=== PATIENT | female | born 2000 | race Caucasian/White ===

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

== ENCOUNTER 2019-03-21 23:21 | Outpatient (CLI) | payer OTHER ==
[2019-03-22 00:41] LABS: APPEARANCE,URINE CLOUDY; BILIRUBIN,URINE NEGATIVE (NEGATIVE); GLUCOSE, URINE NEGATIVE (NEGATIVE); KETONES,URINE NEGATIVE (NEGATIVE); LEUKOCYTE ESTERASE,URINE MODERATE (NEGATIVE); NITRITE,URINE NEGATIVE (NEGATIVE); PROTEIN,URINE NEGATIVE (NEGATIVE); URINE SPECIFIC GRAVITY 1.013; UROBILINOGEN,URINE NEGATIVE mg/dL (<2.0)
[2019-03-22 00:43] LABS: COLOR,URINE YELLOW
[2019-03-22 00:53] LABS: URINE AMPHETAMINES SCREEN NEGATIVE; URINE BARBITURATES SCREEN NEGATIVE; URINE BENZODIAZEPINES SCREEN NEGATIVE; URINE COCAINE SCREEN NEGATIVE; URINE MARIJUANA (THC) SCREEN NEGATIVE; URINE METHADONE SCREEN NEGATIVE
[2019-03-22 00:58] LABS: URINE PHENCYCLIDINE SCREEN NEGATIVE
== END 2019-03-22 01:24 | disposition home or self-care (01) ==
LOC: LC 23:21
PROVIDERS: ATTEND Obstetrics & Gynecology Gynecology
PROC: 4A1HXCZ Monitoring of Products of Conception, Cardiac Rate, External Approach (ICD-10-PCS; principal; 2019-03-21)
DX: O23.42 Unspecified infection of urinary tract in pregnancy, second trimester (principal); Z3A.20 20 weeks gestation of pregnancy
CPT/HCPCS: 80307; 81001

== ENCOUNTER 2019-06-04 21:15 | Outpatient (CLI) | payer OTHER ==
[2019-06-04 21:56] LABS: APPEARANCE,URINE SLIGHTLY-CLOUDY; BILIRUBIN,URINE NEGATIVE (NEGATIVE); COLOR,URINE YELLOW; GLUCOSE, URINE NEGATIVE (NEGATIVE); KETONES,URINE NEGATIVE (NEGATIVE); LEUKOCYTE ESTERASE,URINE SMALL (NEGATIVE); NITRITE,URINE NEGATIVE (NEGATIVE); PROTEIN,URINE NEGATIVE (NEGATIVE); URINE SPECIFIC GRAVITY 1.016; UROBILINOGEN,URINE NEGATIVE mg/dL (<2.0)
[2019-06-04 22:08] LABS: URINE AMPHETAMINES SCREEN NEGATIVE; URINE BARBITURATES SCREEN NEGATIVE; URINE BENZODIAZEPINES SCREEN NEGATIVE; URINE COCAINE SCREEN NEGATIVE; URINE MARIJUANA (THC) SCREEN NEGATIVE; URINE METHADONE SCREEN NEGATIVE; URINE PHENCYCLIDINE SCREEN NEGATIVE
[2019-06-04] MEDS ORDERED: HYDROXYZINE PAMOATE 50 MG CAPSULE ONE (22:15)
[2019-06-04] MEDS ORDERED: HYDROXYZINE PAMOATE 50 MG CAPSULE PO ONE (22:45)
--- NOTE | 2019-06-04 23:29 | RADIOLOGY REPORT (SQ) ---
US PELVIS EXAM DATE: 06/04/2019 12:00 AM CDT HISTORY: Pelvic pain. Evaluate for cervical length. COMPARISON: None. TECHNIQUE: Grayscale, color Doppler, and spectral Doppler ultrasound images of the pelvis were obtained. FINDINGS: There is a single intrauterine gestation in vertex position. The placenta is posterior. LEX is 9.1 cm. The heart rate is 157 bpm. The cervix is closed and measures 3.5 cm in length. IMPRESSION: Closed cervix measuring 3.5 cm.
== END 2019-06-04 23:43 | disposition home or self-care (01) ==
LOC: LC 21:15
PROVIDERS: ATTEND Obstetrics & Gynecology
PROC: 4A1HXCZ Monitoring of Products of Conception, Cardiac Rate, External Approach (ICD-10-PCS; principal; 2019-06-04)
DX: O47.03 False labor before 37 completed weeks of gestation, third trimester (principal); Z3A.31 31 weeks gestation of pregnancy
CPT/HCPCS: 76815; 80307; 81001

== ENCOUNTER 2019-07-18 16:26 | Outpatient (CLI) | payer OTHER ==
[2019-07-18 16:54] LABS: APPEARANCE,URINE SLIGHTLY-CLOUDY; BILIRUBIN,URINE NEGATIVE (NEGATIVE); COLOR,URINE YELLOW; GLUCOSE, URINE NEGATIVE (NEGATIVE); KETONES,URINE NEGATIVE (NEGATIVE); LEUKOCYTE ESTERASE,URINE SMALL (NEGATIVE); NITRITE,URINE NEGATIVE (NEGATIVE); PROTEIN,URINE NEGATIVE (NEGATIVE); URINE SPECIFIC GRAVITY 1.013; UROBILINOGEN,URINE NEGATIVE mg/dL (<2.0)
[2019-07-18 17:10] LABS: URINE AMPHETAMINES SCREEN NEGATIVE; URINE BARBITURATES SCREEN NEGATIVE; URINE BENZODIAZEPINES SCREEN NEGATIVE; URINE COCAINE SCREEN NEGATIVE; URINE MARIJUANA (THC) SCREEN NEGATIVE; URINE METHADONE SCREEN NEGATIVE; URINE PHENCYCLIDINE SCREEN NEGATIVE
--- NOTE | 2019-07-18 17:11 | Non Stress Test Report ---
Non Stress Test Datetime Report Generated by CPN: 07/18/2019 17:10 DEMOGRAPHIC EGA NST: 37.3 INDICATION Indication for Study: Ordered by Provider VITAL SIGNS Temperature - NST: 98.0 RESP - NST: 16 MONITORING Monitor Explained: Monitor Explained; Test Explained; Patient Verbalized Understanding Time on Monitor: 07/18/2019 16:40 Time off Monitor: 07/18/2019 17:00 NST Duration: 20 NST INTERVENTIONS NST Interventions: Reposition Patient Physician Notified NST: A. Freitas CNM on unit reviewed fht BABY A: [id number] BABY A Movement : Present Contraction Frequency : none FHR Baseline : 145 Accelerations : 15X15 Decelerations : None Variability : Moderate 6-25bpm NST Review: Meets Criteria for Reactive NST NST Review and Verified By : Belinda Hedrick RN NST Results: Reactive NST REPORT Report Trigger: Send Report
== END 2019-07-18 17:11 | disposition home or self-care (01) ==
LOC: LC 16:26
PROVIDERS: ATTEND Obstetrics & Gynecology Gynecology
PROC: 4A1HXCZ Monitoring of Products of Conception, Cardiac Rate, External Approach (ICD-10-PCS; principal; 2019-07-18)
DX: Z34.93 Encounter for supervision of normal pregnancy, unspecified, third trimester (principal)
CPT/HCPCS: 59025; 80307; 81005; 84112

== ENCOUNTER 2019-07-28 22:56 | Outpatient (CLI) | payer OTHER ==
[2019-07-28 23:53] LABS: APPEARANCE,URINE CLOUDY; BILIRUBIN,URINE NEGATIVE (NEGATIVE); COLOR,URINE YELLOW; GLUCOSE, URINE NEGATIVE (NEGATIVE); KETONES,URINE NEGATIVE (NEGATIVE); LEUKOCYTE ESTERASE,URINE NEGATIVE (NEGATIVE); NITRITE,URINE NEGATIVE (NEGATIVE); PROTEIN,URINE NEGATIVE (NEGATIVE); URINE SPECIFIC GRAVITY 1.014; UROBILINOGEN,URINE NEGATIVE mg/dL (<2.0)
[2019-07-29 00:14] LABS: URINE AMPHETAMINES SCREEN NEGATIVE; URINE BARBITURATES SCREEN NEGATIVE; URINE BENZODIAZEPINES SCREEN NEGATIVE; URINE COCAINE SCREEN NEGATIVE; URINE MARIJUANA (THC) SCREEN NEGATIVE; URINE METHADONE SCREEN NEGATIVE; URINE PHENCYCLIDINE SCREEN NEGATIVE
[2019-07-29] MEDS ORDERED: HYDROXYZINE PAMOATE 50 MG CAPSULE PO ONE (00:47)
[2019-07-29] MEDS ORDERED: HYDROXYZINE PAMOATE 50 MG CAPSULE ONE (00:58)
== END 2019-07-29 01:13 | disposition home or self-care (01) ==
LOC: LC 22:56
PROVIDERS: ATTEND Obstetrics & Gynecology
PROC: 4A1HXCZ Monitoring of Products of Conception, Cardiac Rate, External Approach (ICD-10-PCS; principal; 2019-07-28)
DX: O47.1 False labor at or after 37 completed weeks of gestation (principal); Z3A.38 38 weeks gestation of pregnancy
CPT/HCPCS: 59025; 80307; 81005

== ENCOUNTER 2019-08-01 22:38 | Outpatient (CLI) | payer OTHER ==
--- NOTE | 2019-08-01 22:52 | Non Stress Test Report ---
Non Stress Test Datetime Report Generated by CPN: 08/01/2019 22:52 DEMOGRAPHIC EGA NST: 39.0 INDICATION Indication for Study: Ordered by Provider URINE RESULTS Urine Protein, NST: Negative Urine Ketones - NST: Negative Urine Glucose - NST: Negative Urine Blood - NST: Negative MONITORING Monitor Explained: Monitor Explained; Test Explained; Patient Verbalized Understanding Time on Monitor: 07/29/2019 00:00 Time off Monitor: 07/29/2019 00:30 NST Duration: 30 NST INTERVENTIONS NST Interventions: PO Hydration Physician Notified NST: Dr. Ayon BABY A: [id number] BABY A Movement : Present Contraction Frequency : Occasional FHR Baseline : 125 Accelerations : 15X15 Decelerations : None Variability : Moderate 6-25bpm NST Review: Meets Criteria for Reactive NST NST Review and Verified By : alhaji SIEGEL Results: Reactive NST REPORT Report Trigger: Send Report
[2019-08-01 23:43] LABS: APPEARANCE,URINE CLOUDY; BILIRUBIN,URINE NEGATIVE (NEGATIVE); COLOR,URINE YELLOW; GLUCOSE, URINE NEGATIVE (NEGATIVE); KETONES,URINE NEGATIVE (NEGATIVE); LEUKOCYTE ESTERASE,URINE SMALL (NEGATIVE); NITRITE,URINE NEGATIVE (NEGATIVE); PROTEIN,URINE 30 mg/dL (NEGATIVE)
[2019-08-01] MEDS ORDERED: HYDROXYZINE PAMOATE 50 MG CAPSULE PO ONE (23:49)
[2019-08-01] MEDS ORDERED: HYDROXYZINE PAMOATE 50 MG CAPSULE ONE (23:50)
--- NOTE | 2019-08-02 00:03 | Non Stress Test Report ---
Non Stress Test Datetime Report Generated by CPN: 08/02/2019 00:02 DEMOGRAPHIC EGA NST: 39.3 INDICATION Indication for Study: Other Indication for Study (NST) Other: lc MONITORING Monitor Explained: Monitor Explained; Test Explained; Patient Verbalized Understanding Time on Monitor: 08/01/2019 23:00 Time off Monitor: 08/01/2019 23:59 NST Duration: 59 NST INTERVENTIONS NST Interventions: PO Hydration; Reposition Patient Physician Notified NST: Dr Sims BABY A Movement : Present Contraction Frequency : 0 FHR Baseline : 120 Accelerations : 15X15 Decelerations : None Variability : Moderate 6-25bpm NST Review: Meets Criteria for Reactive NST NST Review and Verified By : Martine Shankar RN NST Results: Reactive NST REPORT Report Trigger: Send Report
[2019-08-02 00:05] LABS: URINE AMPHETAMINES SCREEN NEGATIVE; URINE BARBITURATES SCREEN NEGATIVE; URINE BENZODIAZEPINES SCREEN NEGATIVE; URINE COCAINE SCREEN NEGATIVE; URINE MARIJUANA (THC) SCREEN NEGATIVE; URINE METHADONE SCREEN NEGATIVE; URINE PHENCYCLIDINE SCREEN NEGATIVE
== END 2019-08-02 00:09 | disposition home or self-care (01) ==
LOC: LC 22:38
PROVIDERS: ATTEND Obstetrics & Gynecology
PROC: 4A1HXCZ Monitoring of Products of Conception, Cardiac Rate, External Approach (ICD-10-PCS; principal; 2019-08-01)
DX: O47.1 False labor at or after 37 completed weeks of gestation (principal); Z3A.39 39 weeks gestation of pregnancy
CPT/HCPCS: 59025; 80307; 81005

== ENCOUNTER 2019-08-06 09:08 | Outpatient (CLI) | payer OTHER ==
[2019-08-06 09:53] LABS: APPEARANCE,URINE SLIGHTLY-CLOUDY; BILIRUBIN,URINE NEGATIVE (NEGATIVE); GLUCOSE, URINE NEGATIVE (NEGATIVE); KETONES,URINE NEGATIVE (NEGATIVE); LEUKOCYTE ESTERASE,URINE SMALL (NEGATIVE); NITRITE,URINE NEGATIVE (NEGATIVE); PROTEIN,URINE 30 mg/dL (NEGATIVE); URINE SPECIFIC GRAVITY 1.025; UROBILINOGEN,URINE NEGATIVE mg/dL (<2.0)
[2019-08-06 09:55] LABS: COLOR,URINE YELLOW
[2019-08-06 10:09] LABS: URINE AMPHETAMINES SCREEN NEGATIVE; URINE BARBITURATES SCREEN NEGATIVE; URINE BENZODIAZEPINES SCREEN NEGATIVE; URINE COCAINE SCREEN NEGATIVE; URINE MARIJUANA (THC) SCREEN NEGATIVE; URINE METHADONE SCREEN NEGATIVE; URINE PHENCYCLIDINE SCREEN NEGATIVE
[2019-08-06] MEDS: RINGERS SOLUTION,LACTATED 1,000 ML IV PRN ×2 (10:38→11:39)
--- NOTE | 2019-08-06 12:53 | RADIOLOGY REPORT (SQ) ---
EXAM DESCRIPTION: U/S RETROPERITON (RENAL/AORTA) COMPLETED DATE/TIME: 08/06/2019 12:37 pm REASON FOR STUDY: back pain hematuria COMPARISON: None. TECHNIQUE: Dynamic and static grayscale images acquired of the kidneys and bladder and recorded on P ACS. Additional selected color Doppler and spectral images recorded. LIMITATIONS: None. FINDINGS: RIGHT KIDNEY: The right kidney measures 11.2 cm in length, normal size. Slight to very m ild dilatation of the renal pelvis may be related to the patient's state. Normal echogenic ity. No solid or suspicious masses. LEFT KIDNEY: The left kidney measures 10.7 cm in length, normal size. Normal echogenicity. No solid or suspicious masses. No hydronephrosis. No calcifications. BLADDER: The patient's urinary bladder is incompletely distended. OTHER FINDINGS: No other significant finding. IMPRESSION: 1. Slight to very mild dilatation of the right renal pelvis may be related to the patie nt's state. 2. Examination is otherwise unremarkable sonographically. TECHNICAL DOCUMENTATION: JOB ID: [id number] [employer]- All Rights Reserved Reading location - IP/workstation name: [email or web address]
== END 2019-08-06 13:30 | disposition home or self-care (01) ==
LOC: LC 09:08
PROVIDERS: ATTEND Obstetrics & Gynecology
DX: O47.1 False labor at or after 37 completed weeks of gestation (principal); Z3A.40 40 weeks gestation of pregnancy; O26.893 Other specified pregnancy related conditions, third trimester; M54.9 Dorsalgia, unspecified; R31.9 Hematuria, unspecified
CPT/HCPCS: 59025; 76770; 80307; 81005

== ENCOUNTER 2019-08-11 14:31 | Inpatient (IN) | payer OTHER ==
[2019-08-11 15:21] LABS: APPEARANCE,URINE SLIGHTLY-CLOUDY; BILIRUBIN,URINE NEGATIVE (NEGATIVE); COLOR,URINE YELLOW; GLUCOSE, URINE NEGATIVE (NEGATIVE); KETONES,URINE NEGATIVE (NEGATIVE); LEUKOCYTE ESTERASE,URINE NEGATIVE (NEGATIVE); NITRITE,URINE NEGATIVE (NEGATIVE); PROTEIN,URINE NEGATIVE (NEGATIVE); URINE SPECIFIC GRAVITY 1.013; UROBILINOGEN,URINE NEGATIVE mg/dL (<2.0)
[2019-08-11 15:44] LABS: URINE AMPHETAMINES SCREEN NEGATIVE; URINE BARBITURATES SCREEN NEGATIVE; URINE BENZODIAZEPINES SCREEN NEGATIVE; URINE COCAINE SCREEN NEGATIVE; URINE MARIJUANA (THC) SCREEN NEGATIVE; URINE METHADONE SCREEN NEGATIVE; URINE PHENCYCLIDINE SCREEN NEGATIVE
[2019-08-11] MEDS ORDERED: DINOPROSTONE 10 MG VAGINAL INSERT.SR PV PRN (17:03)
[2019-08-11] MEDS ORDERED: RINGERS SOLUTION,LACTATED 1,000 ML IV PRN (17:03)
[2019-08-11] MEDS ORDERED: OXYTOCIN/NORMAL SALINE 20 UNIT/1,000 ML RTUINJ IV PRN ×2 (17:03→22:45)
[2019-08-11] MEDS ORDERED: RINGERS SOLUTION,LACTATED 300 ML IV ONE (17:03)
[2019-08-11] MEDS ORDERED: NALBUPHINE HCL INJ 10 MG/1 ML AMPULE ONE (17:08)
[2019-08-11] MEDS ORDERED: NALBUPHINE HCL INJ 10 MG/1 ML AMPULE INJ ONE (17:24)
[2019-08-11] MEDS ORDERED: OXYTOCIN/NORMAL SALINE 20 UNIT/1,000 ML RTUINJ ONE ×2 (17:26→19:19)
[2019-08-11 17:46] LABS: ABSOLUTE LYMPHOCYTES (AUTO) 2.6 10^3/uL (0.5-4.7); ABSOLUTE MONOCYTES (AUTO) 0.9 10^3/uL (0.1-1.4); ABSOLUTE NEUT (AUTO) 10.6 10^3/uL (1.7-8.2); BASOPHILS % (AUTO) 0.2 % (0-2); EOSINOPHILS % (AUTO) 0.3 % (0-6); HEMATOCRIT 35.7 % (36.0-47.0); HEMOGLOBIN 11.6 g/dL (12.0-15.5); LYMPHOCYTES % (AUTO) 18.2 % (13-45); MEAN CORPUSCULAR HEMOGLOBIN 25.5 pg (27.0-33.4); MEAN CORPUSCULAR HGB CONC 32.3 g/dL (32.0-36.0); MEAN CORPUSCULAR VOLUME 79 fl (80-97); MONOCYTES % (AUTO) 6.5 % (3-13); PLATELET COUNT 216 10^3/uL (150-450); RED BLOOD COUNT 4.53 10^6/uL (3.72-5.28); RED CELL DISTRIBUTION WIDTH 16.2 % (11.5-14.0); SEGMENTED NEUTROPHILS % (AUTO) 74.8 % (42-78); TOTAL CELLS COUNTED % (AUTO) 100 %; WHITE BLOOD COUNT 14.2 10^3/uL (4.0-10.5)
[2019-08-11] MEDS ORDERED: OXYTOCIN 10 UNIT/ML VIAL ONE (19:18)
[2019-08-11] MEDS ORDERED: EPHEDRINE SULFATE INJ 50 MG/1 ML AMPULE ONE (19:18)
[2019-08-11] MEDS ORDERED: MISOPROSTOL 0.2 MG TABLET ONE (19:18)
[2019-08-11] MEDS ORDERED: BUPIVACAINE HCL 0.25 % INJ/PF (2.5 MG/1 ML) 30 ML VIAL ONE (19:19)
[2019-08-11] MEDS ORDERED: FENTANYL/BUPIVACAINE/NS/PF 300 MCG/150 ML RTUINJ EPI ONE (19:19)
[2019-08-11] MEDS ORDERED: LIDOCAINE 1% INJ-PF (10 MG/ML) 30 ML SDV ONE (19:19)
[2019-08-11] MEDS ORDERED: FENTANYL CITRATE INJ/PF 100 MCG/2 ML AMPUL ONE (19:20)
[2019-08-11] MEDS ORDERED: MEASLES,MUMPS&RUBELLA VACC/PF 0.5 ML VIAL SUBCUT PRN (22:45)
[2019-08-11] MEDS ORDERED: MAGNESIUM HYDROXIDE SUSP 30 ML UDCUP PO PRN (22:45)
[2019-08-11] MEDS ORDERED: ACETAMINOPHEN 325 MG TABLET PO PRN (22:45)
[2019-08-11] MEDS ORDERED: NA PHOS,M-B/NA PHOS,DI-BA (ADULT) 133 ML ENEMA PR PRN (22:45)
[2019-08-11] MEDS ORDERED: PSEUDOEPHEDRINE HCL 30 MG TABLET PO PRN (22:45)
[2019-08-11] MEDS ORDERED: GLYCERIN/WITCH HAZEL LEAF 1 EACH MED..WIPE TP PRN (22:45)
[2019-08-11] MEDS ORDERED: DIPHENHYDRAMINE HCL 25 MG CAPSULE PO PRN (22:45)
[2019-08-11] MEDS ORDERED: ZOLPIDEM TARTRATE 5 MG TABLET PO PRN (22:45)
[2019-08-11] MEDS ORDERED: BENZOCAINE/MENTHOL AEROSOL SPRAY 56 ML TOP PRN (22:45)
[2019-08-11] MEDS ORDERED: PROMETHAZINE HCL 25 MG SUPP.RECT PR PRN (22:45)
[2019-08-11] MEDS ORDERED: DIPH/PERTUSS(ACELL)/TETANUS VAC/PF 0.5 ML SYR (>=10YO) IM PRN (22:45)
[2019-08-11] MEDS ORDERED: DIBUCAINE 1% OINTMENT 56 GM TP PRN (22:45)
[2019-08-11] MEDS ORDERED: PROMETHAZINE HCL 25 MG TABLET PO PRN (22:45)
[2019-08-11] MEDS ORDERED: ACETAMINOPHEN WITH CODEINE #3 TABLET PO PRN ×2 (22:45)
[2019-08-11] MEDS ORDERED: PROMETHAZINE HCL INJ 25 MG/1 ML VIAL IV PRN (22:45)
--- NOTE | 2019-08-11 23:11 | Admission Physical ---
Datetime Report Generated by CPN: 08/11/2019 23:10 CURRENT ADMISSION Chief Complaint: Uterine Contractions Indication for Induction: Post Dates Admit Impression : Term, Intrauterine Admit Plan: Admit to Unit ALLERGIES Medication Allergies: No Medication Allergies: No Known Allergies (08/11/2019) Latex: Unknown OBSTETRICAL HISTORY EDC: 08/05/2019 00:00 : 1 Para: 0 Term: 0 : 0 SAB: 0 IAB: 0 Ectopic: 0 Livin Cesareans: 0 VBACs: 0 Multiple Births: 0 Gestational Diabetes: No Rh Sensitization: No Incompetent Cervix: No ANDRE: No Infertility: No ART Treatment: No Uterine Anomaly: No IUGR: No Hx Previous C/S: No Macrosomia: No Hx Loss/Stillborn: No PIH: No Hx : No Placenta Previa/Abruption: No Depression/PP Depression: No PTL/PROM: No Post Hemorrhage: No Current Procedures: Ultrasound Obstetrical History Comments: G1-Current SEE RECORDS Alcohol: No Marijuana : No Cocaine: No Other Illicit Drugs: No Cigarettes: Never Smoker. 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 UTIs this . anxiety (no meds currently) INFECTIOUS HISTORY Gonorrhea: No Genital Herpes: No Chlamydia: No Tuberculosis: No Syphilis: No Hepatitis: No HIV/AIDS Exposure: No Rash or Viral Illness: No HPV: No PHYSICAL EXAM General: Normal HEENT: Normal Neurologic: Normal Thyroid: Deferred Heart: Normal Lungs: Normal Breast: Deferred Back: Normal Abdomen: Normal Genitourinary Exam: Normal Extremities: Normal DTRs: Normal Pelvic Type: Adequate Vital Signs: Reviewed VAGINAL EXAM Dilatation: 3 Effacement: 90 Station: -2 Contraction Comments: q 2-3 MEMBRANES Membranes: Intact FETUS A EGA: 40.6 Monitoring: External US FHR- Baseline: 145 Variability: Moderate 6-25bpm Accelerations: 15X15 Decelerations: None FHR Category: Category I Presentation: Vertex Admit Comment: 19yo at 40+6ega presents for early labor and scheduled for IOL in the am. PN in [place] from 8-20wks. On celexa for Anxiety and depression - meeting/event planner placed. GBS negative. Anticipate . PLANS FOR LABOR AND DELIVERY Labor and Delivery: None Pain Management: Medications; Epidural (Annotations: Data stored by [facility] on behalf of user) Feeding Preference: Formula Benefit of Breast Feed Discussed: Yes Circumcision: N/A INFORMED CONSENT Informed Consent Obtained: Vaginal Delivery; Induction of Labor; Risks, Benefits and Alternatives Discussed Signature: with User ID: [email or web address]
[2019-08-11] MEDS ORDERED: FAMOTIDINE 20 MG TABLET PO ONE (23:15)
--- NOTE | 2019-08-12 00:23 | Delivery Summary ---
Del Sum A-C Datetime Report Generated by CPN: 08/12/2019 00:23 DELIVERY PERSONNEL DELIVERY PERSONNEL: [id number] Delivery Doctor:: Lucita Calix MD Anesthesiologist:: Yaneli Gonzalez MD Labor and Delivery Nurse:: Anne Vivas RNswitch operator Nurse:: Emma Puckett RN Nursery Nurse:: Nolvia Valle RN Avionics Technician/SCIENTIFIC ADVISOR: Kiah Lucio, ST MATERNAL INFORMATION Delivery Anesthesia: Epidural Medications After Delivery: Pitocin Drip 20 Units/1000ml NSS Estimated Blood Loss (ml): 10 Delivery QBL: 10 Delivery QBL Comment: 10 Total QBL 75 Maternal Complications: None Provider Comments: VFI delivered in BEE presentation with compound right hand. No nuchal cord shoulders and body delivered without difficulty. Cord doubly clamped and cut and infant to maternal abd for NRP. Placenta delivered intact spontaneously. superficial laceration repaired with good hemostasis. FF at U. MOther and baby stable upon provider leaving the room. LABOR SUMMARY EDC: 08/05/2019 00:00 No. Babies in Womb: 1 Attempted: Yes Labor Anesthesia: Epidural LABOR INFORMATION Reason for Induction: Not Applicable Onset of Labor: 08/11/2019 19:00 Complete Dilatation: 08/11/2019 20:01 Oxytocin: Augmentation Group B Beta Strep: NEGATIVE Steroids Given: None Reason Steroids Not Administered: Not Applicable MEMBRANES Membranes Rupture Method: Spontaneous Rupture of Membranes: 08/11/2019 19:40 Length of Rupture (hr): 2.65 Amniotic Fluid Color: Clear Amniotic Fluid Amount: Moderate Amniotic Fluid Odor: Normal STAGES OF LABOR Stage 1 hr: 1 Stage 1 min: 1 Stage 2 hr: 2 Stage 2 min: 18 Stage 3 hr: 0 Stage 3 min: 4 Total Time in Labor hr: 3 Total Time in Labor min: 23 VAGINAL DELIVERY Episiotomy: None Laceration #1: Perineal Laceration Extension #1: First Degree Laceration Repair: Yes Laceration Repair Note: 1st degree perineal laceration repaired with good hemostasis. Sponge Count Correct: Yes Sharps Count Correct: Yes CSECTION DELIVERY Primary Indication: N/A Secondary Indication: N/A CSection Incidence: N/A Labor: N/A Elective: N/A BABY A INFORMATION Delivery Date/Time: 08/11/2019 22:19 Method of Delivery: Vaginal Born in Route : No : N/A Forceps: N/A Vacuum Extraction: N/A Shoulder Dystocia : No PRESENTATION/POSITION BABY A Presentation: Cephalic Cephalic Presentation: Face Vertex Position: Left Occipital Posterior Breech Presentation: N/A PLACENTA INFORMATION BABY A Placenta Delivery Time : 08/11/2019 22:23 Placenta Method of Delivery: Spontaneous Placenta Status: Delivered SCORES BABY A Heart Rate 1 min: >100 bpm Resp Effort 1 min: Good Cry Reflex Irritability 1 min: Cough or Sneeze or Pulls Away Muscle Tone 1 min: Active Motion Color 1 min: Blue/Pale Resuscitation Effort 1 min: Tactile Stimulation SCORE 1 MIN: 8 Heart Rate 5 min: >100 bpm Resp Effort 5 min: Good Cry Reflex Irritability 5 min: Cough or Sneeze or Pulls Away Muscle Tone 5 min: Active Motion Color 5 min: Body [place], Extremities Blue Resuscitation Effort 5 min: Tactile Stimulation SCORE 5 MIN: 9 INFANT INFORMATION BABY A Gestational Age at Delivery: 40.6 Gestational Status: Full Term- 39- 40.6 Weeks Outcome : Liveborn Condition : Stable Infant Sex: Female IDENTIFICATION BABY A Infant Verification Date/Time: 08/11/2019 22:41 ID Band Number: [id number] Mother's Name Verified: Yes Infant RN Verifying Infant: AdrianKAUR Additional Verifying Personnel: Anshu Fields RN WEIGHT/LENGTH BABY A Infant Birthweight (gm): 3000 Infant Weight (lb): 6 Infant Weight (oz): 10 Infant Length (in): 19.25 Infant Length (cm): 48.90 CORD INFORMATION BABY A No. Cord Vessels: 3 Nuchal Cord : Around Neck x2, Tight Nuchal Cord- Other: compound right hand Cord Blood Taken: Yes-For Storage (Mom's Blood type +) Infant Suction: Mouth ASSESSMENT BABY A Complications: None Physical Findings at Delivery: Caput Succedaneum Infant Respirations: Appears Normal Skin to Skin: Yes [place] Laborer/ALS Called : No Transferred To: Remains with Mother BABY B INFORMATION : N/A SIGNATURES Signature: with User ID: [email or web address]
[2019-08-12] MEDS ORDERED: IBUPROFEN 800 MG TABLET ONE (00:29)
[2019-08-12] MEDS: IBUPROFEN 800 MG TABLET PO SCH ×3 (05:29→21:48)
[2019-08-12 06:27] LABS: HEMOGLOBIN 10.7 g/dL (12.0-15.5); MEAN CORPUSCULAR HEMOGLOBIN 25.5 pg (27.0-33.4); MEAN CORPUSCULAR HGB CONC 32.6 g/dL (32.0-36.0); MEAN CORPUSCULAR VOLUME 78 fl (80-97); PLATELET COUNT 196 10^3/uL (150-450); RED BLOOD COUNT 4.22 10^6/uL (3.72-5.28); RED CELL DISTRIBUTION WIDTH 16.2 % (11.5-14.0)
[2019-08-12] MEDS: PRENATAL VITAMIN W DHA CAPSULE PO SCH (09:23)
[2019-08-12] MEDS: DOCUSATE SODIUM 100 MG CAPSULE PO SCH ×2 (09:23→18:04)
[2019-08-12] MEDS: SENNOSIDES/DOCUSATE 8.6-50 MG 1 EACH TABLET PO SCH (09:23)
[2019-08-12] MEDS: FAMOTIDINE 20 MG TABLET PO SCH ×2 (09:23→21:48)
[2019-08-12] MEDS: FERROUS SULFATE 325 MG TABLET PO SCH ×2 (09:23→18:04)
--- NOTE | 2019-08-12 09:50 | PDOC PROGRESS REPORT ---
Subjective-OB Progress Note for:: 08/12/19 Subjective: Pt doing well, no concerns. She reports bleeding is light, had regular diet for breakfast and she is voiding without difficulty. Physical Exam (OB) Vital Signs: Temp Pulse Resp BP Pulse Ox 97.8 F 73 16 117/75 99 08/12/19 07:35 08/12/19 07:35 08/12/19 07:35 08/12/19 07:35 08/12/19 07:35 Intake & Output 08/11/19 08/12/19 08/13/19 06:59 06:59 06:59 Weight 91 kg - Lochia Lochia Amount: Small 10-25 ml Lochia Color: Rubra/Red - Abdomen Description: Tender, Soft Hernia Present: No Fundal Description: Firm, Midline Fundal Height: u/u - u/2 Objective-Diagnostic Laboratory: 08/12/19 06:19 08/11/19 08/11/19 08/11/19 14:45 17:28 17:28 WBC 14.2 H RBC 4.53 Hgb 11.6 L Hct 35.7 L MCV 79 L MCH 25.5 L MCHC 32.3 RDW 16.2 H Plt Count 216 Seg Neutrophils % 74.8 Urine Color YELLOW Urine Appearance SLIGHTLY-CLOUDY Urine pH 7.0 Ur Specific [place] 1.013 Urine Protein NEGATIVE Urine Glucose (UA) NEGATIVE Urine Ketones NEGATIVE Urine Blood NEGATIVE Urine Nitrite NEGATIVE Ur Leukocyte Esterase NEGATIVE Blood Type O POSITIVE Antibody Screen NEGATIVE 08/12/19 06:19 WBC 16.0 H RBC 4.22 Hgb 10.7 L Hct 33.0 L MCV 78 L MCH 25.5 L MCHC 32.6 RDW 16.2 H Plt Count 196 Seg Neutrophils % Urine Color Urine Appearance Urine pH Ur Specific [place] Urine Protein Urine Glucose (UA) Urine Ketones Urine Blood Urine Nitrite Ur Leukocyte Esterase Blood Type Antibody Screen Assessment and Plan(PN) - Assessment and Plan (1) Anxiety Is this a current diagnosis for this admission?: Yes (2) Post-term Qualifiers: Post-term type: 40-42 weeks gestation Qualified Code(s): O48.0 - Post-term Is this a current diagnosis for this admission?: Yes (3) Vaginal delivery Is this a current diagnosis for this admission?: Yes - Time Spent with Patient Time with patient: Less than 15 minutes Medications reviewed and adjusted accordingly: Yes - Disposition Anticipated Discharge: Home Within: within 24 hours
[2019-08-12] MEDS ORDERED: MEASLES,MUMPS&RUBELLA VACC/PF 0.5 ML VIAL SUBCUT PRN (10:00)
[2019-08-12] MEDS ORDERED: DIPH/PERTUSS(ACELL)/TETANUS VAC/PF 0.5 ML SYR (>=10YO) IM PRN (10:00)
[2019-08-12] MEDS: CITALOPRAM HYDROBROMIDE 20 MG TABLET PO SCH (19:50)
[2019-08-13] MEDS: IBUPROFEN 800 MG TABLET PO SCH (06:03)
[2019-08-13 07:49] VITALS: BP 115/76
--- NOTE | 2019-08-13 09:20 | PDOC PROGRESS REPORT ---
Subjective-OB Progress Note for:: 08/13/19 Subjective: Doing well, hsb at BS, bottle feeding, voiding, eating well, scant bleeding Physical Exam (OB) Vital Signs: Temp Pulse Resp BP Pulse Ox 98 F 84 16 115/76 99 08/13/19 07:48 08/13/19 07:48 08/13/19 07:48 08/13/19 07:48 08/13/19 07:48 Intake & Output 08/12/19 08/13/19 08/14/19 06:59 06:59 06:59 Weight 91 kg - PIH/Pre-Eclampsia Clonus: Negative Headache: Absent Epigastric Pain: No Visual Changes: No - Lochia Lochia Amount: Scant < 10 ml Lochia Color: Rubra/Red - Abdomen Description: Tender, Soft, Round Hernia Present: No Fundal Description: Firm Fundal Height: u/u - u/2 Objective-Diagnostic Laboratory: 08/12/19 06:19 Assessment and Plan(PN) - Assessment and Plan (1) Vaginal delivery Is this a current diagnosis for this admission?: Yes (2) Anxiety Is this a current diagnosis for this admission?: Yes (3) Post-term Qualifiers: Post-term type: 40-42 weeks gestation Qualified Code(s): O48.0 - Post-term Is this a current diagnosis for this admission?: Yes - Time Spent with Patient Time with patient: Less than 15 minutes Medications reviewed and adjusted accordingly: Yes - Disposition Anticipated Discharge: Home Within: within 24 hours
--- NOTE | 2019-08-13 09:25 | PDOC DISCHARGE SUMMARY ---
Impression - Admit/DC Date/PCP Admission Date/Primary Care Provider: 08/11/19 16:53 JACK ROCKWELL MD Discharge Date: 08/13/19 - Discharge Diagnosis (1) Vaginal delivery Is this a current diagnosis for this admission?: Yes (2) Anxiety Is this a current diagnosis for this admission?: Yes (3) Post-term Is this a current diagnosis for this admission?: Yes - Additional Information Resuscitation Status: Full Code Discharge Diet: As Tolerated, Regular Discharge Activity: No Lifting Over 10 Pounds, No Lifting/Push/Pulling, Pelvic Rest Referrals: JACK ROCKWELL MD [Primary Care Provider] - (RTC 2 weeks) Home Medications: Vits96/Iron Fum/Folic [ Tablet] 1 each PO DAILY 03/22/19 Citalopram Hydrobromide [Celexa 20 mg Tablet] 20 mg PO DAILY tablet 08/13/19 HPI Gestational Age: 40.6 Reason(s) for Admission: Onset of Labor Procedures: NST, Ultrasound Procedure(s) Note: augmentation Intrapartum Procedure(s): Spontaneous Vaginal Delivery Complication(s): Laceration-Perineal Laceration-Degree: 1st Hospital Course Hospital Course: routine Results Laboratory Results: WBC 16.0 10^3/uL (4.0-10.5) H 08/12/19 06:19 RBC 4.22 10^6/uL (3.72-5.28) 08/12/19 06:19 Hgb 10.7 g/dL (12.0-15.5) L 08/12/19 06:19 Hct 33.0 % (36.0-47.0) L 08/12/19 06:19 MCV 78 fl (80-97) L 08/12/19 06:19 MCH 25.5 pg (27.0-33.4) L 08/12/19 06:19 MCHC 32.6 g/dL (32.0-36.0) 08/12/19 06:19 RDW 16.2 % (11.5-14.0) H 08/12/19 06:19 Plt Count 196 10^3/uL (150-450) 08/12/19 06:19 Lymph % (Auto) 18.2 % (13-45) 08/11/19 17:28 [place] % (Auto) 6.5 % (3-13) 08/11/19 17:28 Eos % (Auto) 0.3 % (0-6) 08/11/19 17:28 Baso % (Auto) 0.2 % (0-2) 08/11/19 17:28 Absolute Neuts (auto) 10.6 10^3/uL (1.7-8.2) H 08/11/19 17:28 Absolute Lymphs (auto) 2.6 10^3/uL (0.5-4.7) 08/11/19 17:28 Absolute Monos (auto) 0.9 10^3/uL (0.1-1.4) 08/11/19 17:28 Absolute Eos (auto) 0.0 10^3/uL (0.0-0.6) 08/11/19 17:28 Absolute Basos (auto) 0.0 10^3/uL (0.0-0.2) 08/11/19 17:28 Seg Neutrophils % 74.8 % (42-78) 08/11/19 17:28 Urine Color YELLOW 08/11/19 14:45 Urine Appearance SLIGHTLY-CLOUDY 08/11/19 14:45 Urine pH 7.0 (5.0-9.0) 08/11/19 14:45 Ur Specific [place] 1.013 08/11/19 14:45 Urine Protein NEGATIVE mg/dL (NEGATIVE) 08/11/19 14:45 Urine Glucose (UA) NEGATIVE mg/dL (NEGATIVE) 08/11/19 14:45 Urine Ketones NEGATIVE mg/dL (NEGATIVE) 08/11/19 14:45 Urine Blood NEGATIVE (NEGATIVE) 08/11/19 14:45 Urine Nitrite NEGATIVE (NEGATIVE) 08/11/19 14:45 Urine Bilirubin NEGATIVE (NEGATIVE) 08/11/19 14:45 Urine Urobilinogen NEGATIVE mg/dL (<2.0) 08/11/19 14:45 Ur Leukocyte Esterase NEGATIVE (NEGATIVE) 08/11/19 14:45 Urine Ascorbic Acid 40 (NEGATIVE) H 08/11/19 14:45 Urine Opiates Screen NEGATIVE 08/11/19 14:45 Urine Methadone Screen NEGATIVE 08/11/19 14:45 Ur Barbiturates Screen NEGATIVE 08/11/19 14:45 Ur Phencyclidine Scrn NEGATIVE 08/11/19 14:45 Ur Amphetamines Screen NEGATIVE 08/11/19 14:45 U Benzodiazepines Scrn NEGATIVE 08/11/19 14:45 Urine Cocaine Screen NEGATIVE 08/11/19 14:45 U Marijuana (THC) Screen NEGATIVE 08/11/19 14:45 RPR NONREACTIVE (NONREACTIVE) 08/11/19 17:28 Blood Type O POSITIVE 08/11/19 17:28 Antibody Screen NEGATIVE 08/11/19 17:28 Plan Health Concerns: PPD, nxiety Plan of Treatment: continue celexa Goals: no depression, bonding with baby Time Spent: Less than 30 Minutes - RTC 2 weeks
[2019-08-13] MEDS: FERROUS SULFATE 325 MG TABLET PO SCH (10:56)
[2019-08-13] MEDS: CITALOPRAM HYDROBROMIDE 20 MG TABLET PO SCH (10:57)
[2019-08-13] MEDS: SENNOSIDES/DOCUSATE 8.6-50 MG 1 EACH TABLET PO SCH (10:57)
[2019-08-13] MEDS: PRENATAL VITAMIN W DHA CAPSULE PO SCH (10:57)
[2019-08-13] MEDS: DOCUSATE SODIUM 100 MG CAPSULE PO SCH (10:57)
[2019-08-13] MEDS: FAMOTIDINE 20 MG TABLET PO SCH (10:57)
== END 2019-08-13 13:40 | disposition home or self-care (01) | DRG 807 ==
LOC: LC 14:31 → LR 16:53 → 2S 08-12 00:44
PROVIDERS: ADMIT Student in an Organized Health Care Education/Training Program; ATTEND Student in an Organized Health Care Education/Training Program
PROC: 10E0XZZ Delivery of Products of Conception, External Approach (ICD-10-PCS; principal; 2019-08-11)
PROC: 0HQ9XZZ Repair Perineum Skin, External Approach (ICD-10-PCS; 2019-08-11)
DX: O48.0 Post-term pregnancy (principal); Z37.0 Single live birth; O99.344 Other mental disorders complicating childbirth; O32.6XX0 Maternal care for compound presentation, not applicable or unspecified; F41.9 Anxiety disorder, unspecified; O69.81X0 Labor and delivery complicated by cord around neck, without compression, not applicable or unspecified; Z3A.40 40 weeks gestation of pregnancy; O70.0 First degree perineal laceration during delivery; Z90.49 Acquired absence of other specified parts of digestive tract; Z79.899 Other long term (current) drug therapy
CPT/HCPCS: 36415; 80307; 81005; 85025; 85027; 86592; 86850; 86900; 86901; J2300; J2590; J3010; J3490